=== PATIENT | male | born 1945 | race Caucasian/White ===

== ENCOUNTER 2018-10-07 10:15 | Observation (INO) | payer MEDICARE ==
[~2018-10-07] VITALS: Ht 180.3 cm; Wt 53.1 kg
[2018-10-07 10:43] LABS: GFR > 60 ML/MIN (>=60 (CALC)); GFR FOR AFR.AMER. > 60 ML/MIN (>=60 (CALC))
[2018-10-07 11:04] LABS: HEMATOCRIT 44.9 % (39.0-50.0); IMMATURE GRANULOCYTES 0.7 % (0.0-5.0); MEAN CORPUSCULAR HGB 32.4 pG CALC (26.0-32.0); MEAN CORPUSCULAR HGB CONC 33.4 g/L CALC (32.0-36.0); NEUT# 3.09 thou/uL (1.82-7.42); RED BLOOD COUNT 4.63 mill/uL (4.70-6.10); RED CELL DISTRI WIDTH 13.9 % (11.5-15.5)
[2018-10-07 11:09] LABS: INTERNATIONAL NORMALIZED RATIO 1.2 RATIO (0.7-1.3); PROTHROMBIN TIME 12.7 SECONDS (9.0-12.5)
[2018-10-07 11:11] LABS: ALKALINE PHOSPHATASE 190 u/l (38-126); BUN 16 mg/dL (8-23); BUN/CREATININE RATIO 24 (12-20 (CALC)); CHLORIDE 107 mmol/l (95-108); CREATININE 0.7 mg/dL (0.7-1.3); GFR > 60 ML/MIN (>=60 (CALC)); GFR FOR AFR.AMER. > 60 ML/MIN (>=60 (CALC)); POTASSIUM 4.5 mmol/l (3.5-5.1); SGOT/AST 74 u/l (19-48); SODIUM 139 mmol/l (137-146); TOTAL PROTEIN 7.9 g/dL (6.3-8.2)
[2018-10-07 11:16] LABS: ANION GAP 14 (6-22 (CALC)); BILIRUBIN, TOTAL 1.3 mg/dL (0.0-1.4); CARBON DIOXIDE 23 mmol/l (22-30)
[2018-10-07] MEDS ORDERED: ALEVE220 M1 PO (14:54)
[2018-10-07] MEDS ORDERED: KENALOG15 GM/TUBE EX (14:55)
[2018-10-07 16:44] VITALS: BP 183/71
[2018-10-07 17:50] VITALS: BP 160/63
[2018-10-07 18:17] VITALS: BP 144/67
[2018-10-07 19:00] VITALS: BP 123/62
[2018-10-08 00:06] VITALS: BP 99/54
[2018-10-08 02:31] LABS: URINE BILIRUBIN - DIPSTICK NEGATIVE (NEGATIVE); URINE BLOOD DIPSTICK NEGATIVE (NEGATIVE); URINE COLOR YELLOW; URINE GLUCOSE - DIPSTICK NEGATIVE (NEGATIVE); URINE KETONE NEGATIVE (NEGATIVE); URINE LEUK ESTERASE NEGATIVE (NEGATIVE); URINE NITRITE - DIPSTICK NEGATIVE (Negative); URINE PH 6.5 (4.5-8.0); URINE PROTEIN - DIPSTICK NEGATIVE (NEG-TRACE); URINE SPECIFIC GRAVITY <=1.005; URINE UROBILINOGEN - DIPSTICK 0.2 E.U./dL (0.2)
[2018-10-08 04:00] VITALS: BP 111/61
[2018-10-08 05:53] LABS: IMMATURE GRANULOCYTES 0.3 % (0.0-5.0); MEAN CELL VOLUME 95.6 fL CALC (80.0-100.0); MEAN CORPUSCULAR HGB 32.1 pG CALC (26.0-32.0); MEAN CORPUSCULAR HGB CONC 33.5 g/L CALC (32.0-36.0); NEUT# 1.61 thou/uL (1.82-7.42); RED BLOOD COUNT 3.9 mill/uL (4.70-6.10); RED CELL DISTRI WIDTH 13.9 % (11.5-15.5)
[2018-10-08 06:16] LABS: ALKALINE PHOSPHATASE 104 u/l (38-126); AMYLASE 62 u/l (30-110); ANION GAP 10 (6-22 (CALC)); BILIRUBIN, TOTAL 1.1 mg/dL (0.0-1.4); BUN 14 mg/dL (8-23); BUN/CREATININE RATIO 19 (12-20 (CALC)); CARBON DIOXIDE 26 mmol/l (22-30); CHLORIDE 107 mmol/l (95-108); CREATININE 0.8 mg/dL (0.7-1.3); GFR > 60 ML/MIN (>=60 (CALC)); GFR FOR AFR.AMER. > 60 ML/MIN (>=60 (CALC)); LIPASE 80 u/l (23-300); MAGNESIUM 1.9 mg/dL (1.6-2.3); SGOT/AST 49 u/l (19-48); SODIUM 139 mmol/l (137-146)
[2018-10-08 06:26] LABS: ALBUMIN 2.9 g/dL (3.2-5.0); TOTAL PROTEIN 6.2 g/dL (6.3-8.2)
[2018-10-08 06:54] LABS: HEMATOCRIT 37.3 % (39.0-50.0); HEMOGLOBIN 12.5 g/dl (14.0-18.0)
[2018-10-08 07:22] VITALS: BP 122/56
[2018-10-08 17:05] VITALS: BP 114/61
[2018-10-08 19:24] VITALS: BP 154/71
[2018-10-09] VITALS: BP 145/71
[2018-10-09 04:00] VITALS: BP 155/76
[2018-10-09 05:18] LABS: HEMATOCRIT 36.8 % (39.0-50.0); HEMOGLOBIN 12.4 g/dl (14.0-18.0); IMMATURE GRANULOCYTES 0.3 % (0.0-5.0); MEAN CELL VOLUME 95.6 fL CALC (80.0-100.0); MEAN CORPUSCULAR HGB 32.2 pG CALC (26.0-32.0); MEAN CORPUSCULAR HGB CONC 33.7 g/L CALC (32.0-36.0); NEUT# 1.58 thou/uL (1.82-7.42); RED BLOOD COUNT 3.85 mill/uL (4.70-6.10); RED CELL DISTRI WIDTH 13.9 % (11.5-15.5)
[2018-10-09 05:40] LABS: ALBUMIN 2.9 g/dL (3.2-5.0); ALKALINE PHOSPHATASE 121 u/l (38-126); ANION GAP 10 (6-22 (CALC)); BILIRUBIN, TOTAL 0.9 mg/dL (0.0-1.4); BUN 20 mg/dL (8-23); BUN/CREATININE RATIO 25 (12-20 (CALC)); CARBON DIOXIDE 26 mmol/l (22-30); CHLORIDE 108 mmol/l (95-108); CREATININE 0.8 mg/dL (0.7-1.3); GFR > 60 ML/MIN (>=60 (CALC)); GFR FOR AFR.AMER. > 60 ML/MIN (>=60 (CALC)); MAGNESIUM 1.8 mg/dL (1.6-2.3); POTASSIUM 4.1 mmol/l (3.5-5.1); SGOT/AST 45 u/l (19-48); SODIUM 141 mmol/l (137-146); TOTAL PROTEIN 6.3 g/dL (6.3-8.2)
[2018-10-09 07:28] VITALS: BP 140/80
[2018-10-09 11:00] VITALS: BP 127/69
[2018-10-09] MEDS ORDERED: LISINOPRIL20 M1 PO (11:45)
[2018-10-09] MEDS ORDERED: PANTOPRAZOLE SO40 M1 PO (11:45)
[2018-10-09] MEDS ORDERED: CARVEDILOL6.25 MG PO (11:45)
[2018-10-09] MEDS ORDERED: PROSCAR5 MG PO (11:48)
== END 2018-10-09 13:44 ==
LOC: ED 10:15 → ED-I 14:22 → ED 15:11 → MS2 15:12
PROVIDERS: Emergency Medicine; ADMIT Internal Medicine Nephrology; ATTEND Internal Medicine Nephrology
PROC: 3E0234Z Introduction of Serum, Toxoid and Vaccine into Muscle, Percutaneous Approach (ICD-10-PCS; principal; 2018-10-09)
DX: I16.1 Hypertensive emergency (principal); I10 Essential (primary) hypertension; J44.9 Chronic obstructive pulmonary disease, unspecified; K70.30 Alcoholic cirrhosis of liver without ascites; D64.9 Anemia, unspecified; N40.1 Benign prostatic hyperplasia with lower urinary tract symptoms; R39.198 Other difficulties with micturition; F17.210 Nicotine dependence, cigarettes, uncomplicated; Z23 Encounter for immunization; Z72.89 Other problems related to lifestyle; R53.1 Weakness; R42 Dizziness and giddiness; R11.2 Nausea with vomiting, unspecified
CPT/HCPCS: J1650

== ENCOUNTER 2023-02-15 11:59 | Emergency (ER) | payer MEDICARE ==
[~2023-02-15] VITALS: Ht 180.3 cm; Wt 54.0 kg
[2023-02-15] VITALS (7 sets, daily range): BP systolic 135–166; BP diastolic 76–105
[~2023-02-15 11:59] MED LIST: ALEVE220 M1 PO; CARVEDILOL6.25 MG PO; KENALOG15 GM/TUBE EX; LISINOPRIL20 M1 PO; PANTOPRAZOLE SO40 M1 PO; PROSCAR5 MG PO
[2023-02-15] MEDS ORDERED: ZYRTEC10 MG PO (13:24)
[2023-02-15] MEDS ORDERED: ZPAK PO (13:24)
[2023-02-15] MEDS ORDERED: MEDDOSEPAK PO (13:24)
== END 2023-02-15 13:48 | disposition home or self-care (01) ==
LOC: ED 11:59
DX: J40 Bronchitis, not specified as acute or chronic (principal); J44.9 Chronic obstructive pulmonary disease, unspecified; I10 Essential (primary) hypertension; Z87.891 Personal history of nicotine dependence; Z20.822 Contact with and (suspected) exposure to COVID-19